=== PATIENT | female | born 1955 | race Hispanic/Latino ===

== ENCOUNTER → 2018-10-12 | Outpatient (CLI) | payer OTHER | END | disposition home or self-care (01) | LOC: OIH 13:08 | PROVIDERS: ATTEND Family Medicine | DX: Z13.6 Encounter for screening for cardiovascular disorders (principal) | CPT/HCPCS: 75571 ==

== ENCOUNTER → 2019-07-31 | Outpatient (CLI) | payer OTHER | END | disposition home or self-care (01) | LOC: RAH 13:16 | PROVIDERS: ATTEND Family Medicine | DX: E04.9 Nontoxic goiter, unspecified (principal) | CPT/HCPCS: 76536 ==

== ENCOUNTER → 2020-08-08 | Outpatient (CLI) | payer OTHER | END | disposition home or self-care (01) | LOC: RAH 10:51 | PROVIDERS: ATTEND Family Medicine | DX: E04.9 Nontoxic goiter, unspecified (principal); E04.2 Nontoxic multinodular goiter; E04.1 Nontoxic single thyroid nodule | CPT/HCPCS: 76536 ==

== ENCOUNTER → 2020-08-11 | Outpatient (CLI) | payer OTHER | END | disposition home or self-care (01) | LOC: RAH 12:27 | PROVIDERS: ATTEND Psychiatry & Neurology Neurology | DX: J32.4 Chronic pansinusitis (principal); G40.209 Localization-related (focal) (partial) symptomatic epilepsy and epileptic syndromes with complex partial seizures, not intractable, without status epilepticus | CPT/HCPCS: 70551 ==

== ENCOUNTER → 2021-05-21 | Outpatient (CLI) | payer OTHER | END | disposition home or self-care (01) | LOC: RAH 01:52 | PROVIDERS: ATTEND Otolaryngology Plastic Surgery within the Head & Neck | DX: J32.8 Other chronic sinusitis (principal) | CPT/HCPCS: 70486 ==

== ENCOUNTER → 2022-09-13 | Outpatient (CLI) | payer OTHER | END | disposition home or self-care (01) | LOC: RAH 13:09 | PROVIDERS: ATTEND Family Medicine | DX: E04.2 Nontoxic multinodular goiter (principal) | CPT/HCPCS: 76536 ==

== ENCOUNTER 2025-04-12 11:19 | Observation (INO) | payer OTHER ==
[~2025-04-12] VITALS: Ht 162.6 cm; Wt 95.8 kg
[2025-04-12] VITALS (15 sets, daily range): BP systolic 119–160; BP diastolic 55–82; PULSE 47–58; RESP 10–28; TEMP 98–98.7; O2SAT 96–99
--- NOTE | 2025-04-12 11:43 | NUR ---
refer to trauma paperwork for charting.
[2025-04-12] MEDS: LACTATED RINGERS 1000ML 1,000 ML IV ONE (11:48)
[2025-04-12 12:00] LABS: BASOPHILS # (AUTO) 0.02 K/uL (0.00-0.20); BASOPHILS % (AUTO) 0.6 % (0.0-5.0); EOSINOPHILS # (AUTO) 0.03 K/uL (0.00-0.70); EOSINOPHILS % (AUTO) 0.9 % (0.0-8.0); HEMATOCRIT 37.9 % (36-48); IMMATURE GRANULOCYTE ABSOLUTE 0.02 K/uL (0-1); MEAN CORPUSCULAR HEMOGLOBIN 30.9 pg (27.0-33.0); MEAN CORPUSCULAR HGB CONC 33.5 g/dL (32.0-36.0); MEAN CORPUSCULAR VOLUME 92.2 fL (79-99); MONOCYTES # (AUTO) 0.5 K/uL (0.1-1.0); MONOCYTES % (AUTO) 14.4 % (3.0-13.0); NEUTROPHILS # (AUTO) 1.8 K/uL (1.8-7.7); NEUTROPHILS % (AUTO) 53.5 % (40.0-77.0); PLATELET COUNT (AUTO) 188 K/uL (130-400); RED BLOOD CELL COUNT(AUTO) 4.11 MIL/uL (4.00-5.50); RED CELL DISTRIBUTION WIDTH 13.8 % (11.0-15.5); WHITE BLOOD COUNT (AUTO) 3.4 K/uL (4.8-10.8)
[2025-04-12 12:14] LABS: INR 0.97 (0.85-1.15); PROTHROMBIN TIME 10.3 SEC (9.6-11.6)
--- NOTE | 2025-04-12 12:27 | HMCIMG ---
CT HEAD/BRAIN W/O CONTRAST HISTORY: Trauma COMPARISON: None TECHNIQUE: Multiple sequential axial images of the head were obtained from the base of the skull through vertex. Patient was not given contrast through intravenous route. FINDINGS: Right posterior scalp soft tissue swelling seen. The ventricles and extraventricular CSF spaces are nondilated for patient's age. There is no midline shift, mass effect or herniation. No acute intracranial bleed is seen. There are bilateral ethmoid and maxillary sinus disease. Postop changes are seen of sinuses. IMPRESSION: 1. No acute intracranial bleed is seen. CT was performed with one or more following dose reduction techniques: automated exposure control, adjustment of the mA and kv according to patient's size, or use of a iterative reconstruction technique.
[2025-04-12 12:31] LABS: B-TYPE NATRIURETIC PEPTIDE 79 pg/mL (0-100)
--- NOTE | 2025-04-12 12:46 | HMCIMG ---
CT CERVICAL SPINE W/O CONTRAST HISTORY: Trauma COMPARISON: None TECHNIQUE: Multiple sequential axial images of the cervical spine were obtained including post processing sagittal and coronal reconstruction images. Patient was not given contrast through intravenous route. FINDINGS: There are degenerative changes of the cervical spine spondylosis. Disc space narrowing are seen at C3-4, and C4-5 levels. The study is limited due to poor positioning. There is straightening of normal lordotic cervical curvature which may be related to muscle spasm or positioning. There is no loss of vertebral height. Evaluation for disc and cord pathology is limited with CT study. No evidence of fracture or dislocation is seen. IMPRESSION: 1. No fracture is seen. DJD with spondylosis. CT was performed with one or more following dose reduction techniques: automated exposure control, adjustment of the mA and kv according to patient's size, or use of a iterative reconstruction technique.
[2025-04-12 13:10] LABS: CREATININE 0.6 mg/dL (0.5-1.0); MAGNESIUM 1.7 mg/dL (1.80-2.40); POTASSIUM 3.9 mmol/L (3.5-5.1)
--- NOTE | 2025-04-12 14:12 | ERN ---
General Chief Complaint: Mechanical Fall Stated Complaint: S/P FALL DIZZINESS Time Seen by MD: 11:21 History of Present Illness Initial Comments 69-year-old female who presents for a fall. Yesterday she felt dizzy and had a fall without injury. This morning she reports that she had another fall. She was working with some plants she stood up. She felt dizzy. She fell back and hit the back of her head. No injury after the fall. No vomiting. GCS 15. She has a laceration to the back of the head. She denies any other injuries. Allergies: Coded Allergies: No Known Drug Allergies (Unverified Allergy, Unknown, 04/12/25) Home Meds Reported Medications Fluticasone Propionate (Flonase Nasal [place]) 50 Mcg/Actuation [place], 50 MCG NASAL AM, SPRAY 04/12/25 Pantoprazole Sodium (Pantoprazole Sodium) 40 Mg Tablet.dr, 1 TAB PO DAILY for 30 Days, #30 TAB 0 Refills 04/12/25 Folic Acid (Folic Acid) 0.4 Mg Tablet, 1 TAB PO DAILY for 30 Days, #30 TAB 0 Refills 04/12/25 Montelukast Sodium (Singulair 10Mg) 10 Mg Tab, 10 MG PO HS, TAB 04/12/25 Duloxetine HCl (Duloxetine HCl) 60 Mg Capsule.dr, 60 MG PO HS, CAP 04/12/25 Lamotrigine (Lamotrigine) 200 Mg Tablet, 300 MG PO HS for 30 Days, #30 TAB 0 Refills 04/12/25 Lamotrigine (Lamotrigine) 200 Mg Tablet, 1 TAB PO DAILY for 30 Days, #30 TAB 0 Refills 04/12/25 Topiramate (Topiramate) 200 Mg Tablet, 300 MG PO HS, TAB 04/12/25 Topiramate (Topiramate) 200 Mg Tablet, 1 TAB PO AM for 30 Days, #60 TAB 0 Refills 04/12/25 Propranolol HCl (Propranolol HCl) 10 Mg Tablet, 1 TAB PO BID for 30 Days, #60 TAB 0 Refills 04/12/25 Discontinued Reported Medications Pantoprazole Sodium (Pantoprazole Sodium) 20 Mg Tablet.dr, 10 TAB PO DAILY 04/12/25 Past Medical History Past Medical History: No Pertinent History Past Surgical History: None Results Laboratory and Microbiology Lab and Micro Result Laboratory Tests Test 04/12/25 11:53 04/12/25 12:46 White Blood Count 3.4 K/uL (4.8-10.8) L Red Blood Count 4.11 MIL/uL (4.00-5.50) Hemoglobin 12.7 g/dL (12.0-16.0) Hematocrit 37.9 % (36-48) Mean Corpuscular Volume 92.2 fL (79-99) Mean Corpuscular Hemoglobin 30.9 pg (27.0-33.0) Mean Corpuscular Hemoglobin Concent 33.5 g/dL (32.0-36.0) Red Cell Distribution Width 13.8 % (11.0-15.5) Platelet Count 188 K/uL (130-400) Mean Platelet Volume 9.5 fL (7.5-10.5) Immature Granulocyte % (Auto) 0.6 % (0-1) Neutrophils (%) (Auto) 53.5 % (40.0-77.0) Lymphocytes (%) (Auto) 30.0 % (21.0-51.0) Monocytes (%) (Auto) 14.4 % (3.0-13.0) H Eosinophils (%) (Auto) 0.9 % (0.0-8.0) Basophils (%) (Auto) 0.6 % (0.0-5.0) Neutrophils # (Auto) 1.8 K/uL (1.8-7.7) Lymphocytes # (Auto) 1.0 K/uL (1.0-4.8) Monocytes # (Auto) 0.5 K/uL (0.1-1.0) Eosinophils # (Auto) 0.03 K/uL (0.00-0.70) Basophils # (Auto) 0.02 K/uL (0.00-0.20) Absolute Immature Granulocyte (auto 0.02 K/uL (0-1) Nucleated Red Blood Cells 0.0 % (0.0-0.19) Prothrombin Time 10.3 SEC (9.6-11.6) Prothromb Time International Ratio 0.97 (0.85-1.15) Activated Partial Thromboplast Time 36.0 SEC (26.3-35.5) H B-Type Natriuretic Peptide 79 pg/mL (0-100) Sodium Level 141 mmol/L (136-145) Potassium Level 3.9 mmol/L (3.5-5.1) Chloride Level 109 mmol/L (101-111) Carbon Dioxide Level 27 mmol/L (21-32) Blood Urea Nitrogen 12 mg/dL (7-18) Creatinine 0.6 mg/dL (0.5-1.0) Glomerular Filtration Rate Calc 97 mL/min (>90) Random Glucose 95 mg/dL (70-105) Total Calcium 8.7 mg/dL (8.5-10.1) Magnesium Level 1.70 mg/dL (1.80-2.40) L Total Creatine Kinase 71 U/L (21-232) Troponin I High Sensitivity 8.2 ng/L (4-50) MDM CC: Syncope and fall Historian: Patient Comorbidities: Seizure disorder Limitations by social determinants of health: None Differential diagnosis: Syncope and fall, cardiac syncope, vertigo, brain injury, other. Vital signs: Pulse 45, otherwise vital signs stable remained stable in the ER. EKG: Sinus rhythm, rate of 46, normal axis, good R-wave progression, intervals are stable no STEMI. Independently interpreted by me. Labs (independently ordered and interpreted by me): No leukocytosis no anemia. Coags are stable. Electrolytes stable. CK magnesium troponin BNP are normal. CT head (independently interpreted by me): No acute bleeding or abnormalities CT cervical spine (independently interpreted by me): No acute fractures On clinical exam she has a laceration to the back of the head, it was repaired with three lele here in the ER. Patient received IV fluids in the ER Patient was monitored on the telemetry, her heart rate ranged from the low 40s to the high 40s. It appears to be sinus. I had a conversation with her, since she has had a syncopal episode 2 times over the last two days I recommended admission for observation. She has seen a neurologist for seizure disorder in the past, she has been diagnosed with vertigo and she thinks this may be the cause, but her neurologist also recommend that she follows up with a diesel engine pipe fitter due to the low heart rate. At this point in time I think it is safest to admit for telemetry monitoring unlikely the cardiac workup. Patient is agreeable to the plan. ED Course Orders Procedure Category Date Status Time Ct Head/Brain W/O CT 04/12/25 Resulted Contrast 11:21 Ct Cervical Spine W/O CT 04/12/25 Resulted Contrast 11:21 Cbc With Differential LAB 04/12/25 Complete 11:21 B-Type Natriuretic LAB 04/12/25 Complete Peptide 11:21 Prothrombin Time With LAB 04/12/25 Complete INR 11:21 Partial LAB 04/12/25 Complete Thromboplastin Time 11:21 Urinalysis Profile LAB 04/12/25 Logged 11:21 Lactated Ringers PHA 04/12/25 Complete 1000ml (Lactated 11:30 12 Lead Ekg Tracing- EKG 04/12/25 Complete Technical 11:21 Basic Metabolic Panel LAB 04/12/25 Complete 12:07 Cardiac Panel LAB 04/12/25 Complete 12:07 Magnesium LAB 04/12/25 Complete 12:07 Current Medications Medications (Trade) Dose Ordered Sig/Rowan Route PRN Reason Start Time Stop Time Status Last Admin Dose Admin Lactated Ringer's 1,000 ml @ 0 mls/hr ONCE ONCE IV 04/12/25 11:30 04/12/25 11:34 DC 04/12/25 11:48 Vital Signs Date Time Temp Pulse Resp B/P (MAP) Pulse Ox O2 Delivery O2 Flow Rate FiO2 04/12/25 11:27 97.2 45 22 104/63 96 Room Air 0 DX & DISP Disposition: Inpatient Departure Impression: Primary Impression: Syncope and collapse Additional Impressions: Scalp hematoma, Bradycardia Condition: Stable Referrals: ANDERSON RIOS MD (PCP) MARIEL SCHULTZ DO Apr 12, 2025 14:12
--- NOTE | 2025-04-12 14:23 | EKG ---
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
[2025-04-12] MEDS ORDERED: acetaMINOPHEN 650 MG SUPPOSITORY RC PRN (15:00)
--- NOTE | 2025-04-12 15:12 | NUR ---
pt states has frequent vertigo episodes states she has dizzy spells
[2025-04-12] MEDS ORDERED: PANT20TA18 PO (15:28)
[2025-04-12] MEDS ORDERED: PROP10TA10 PO (15:28)
[2025-04-12] MEDS ORDERED: PoTASSium chloRIDE 20MEQ ER 20 MEQ ERTAB PO PRN (15:30)
[2025-04-12] MEDS ORDERED: DOPamine HCL 400 MG/D5%-WATER 250 ML IV PRN (15:30)
[2025-04-12] MEDS ORDERED: LORazepam 2 MG/ML 1 ML VIAL IVP PRN (15:30)
[2025-04-12] MEDS ORDERED: TOPI200T68 PO ×2 (15:30→15:31)
[2025-04-12] MEDS ORDERED: diazePAM 5 MG/ML 2 ML SYG IVP PRN (15:30)
[2025-04-12] MEDS ORDERED: PoTASSium chl 10% ELIXIR 20MEQ 20 MEQ/15 ML UDCUP PO PRN (15:30)
[2025-04-12] MEDS ORDERED: PoTASSium chloRIDE 20MEQ/100ML 100 ML IV PRN ×2 (15:30)
[2025-04-12] MEDS ORDERED: LAMO200T10 PO ×2 (15:35)
[2025-04-12] MEDS ORDERED: DULO60CA64 PO (15:37)
[2025-04-12] MEDS ORDERED: MONT-46 PO (15:38)
[2025-04-12] MEDS ORDERED: FOLI0.4T6 PO (15:39)
[2025-04-12] MEDS ORDERED: PANT40TA54 PO (15:40)
[2025-04-12] MEDS ORDERED: FLUT16H NASAL (15:41)
[2025-04-12 15:58] LABS: ABG BASE EXCESS -4.1 mmol/L (-2.0-3.0); ABG HCO3 20.8 mmol/L (21.0-28.0); ABG OXYGEN SATURATION 94.3 % (94.0-98.0); ABG PCO2 38 mmHg (32-45); ABG PH 7.362 (7.350-7.450); CARBON MONOXIDE 0.2 % (0.5-1.5); HHb 5.7; VENT MODE, BG RA (ROOM AIR)
--- NOTE | 2025-04-12 16:27 | HMCIMG ---
US CAROTID DUPLEX HISTORY: Carotid stenosis COMPARISON: None TECHNIQUE: Duplex carotid arterial Doppler ultrasound study was performed. FINDINGS: The common, internal and external carotid arteries are visualized. The peak systolic velocities of right common carotid artery is 92 centimeters per second, right internal carotid artery is 88 centimeters per second, right external carotid artery is 78 centimeters per second, and right vertebral artery is 78 centimeters per second. Right internal carotid artery to right common carotid artery ratio is 1.0. Right vertebral artery is seen with antegrade flow. The peak systolic velocities of left common carotid artery is 97 centimeters per second, left internal carotid artery is 127 centimeters per second, left external carotid artery is 106 centimeters per second, and left vertebral artery is 48 centimeters per second. Left internal carotid artery to left common carotid artery ratio is 1.3. Left vertebral artery is seen with antegrade flow. There are bilateral echogenic plaques. IMPRESSION: 1. No hemodynamically significant lesion is seen of either extracranial carotid artery system.
[2025-04-12] MEDS ORDERED: teTANUS/diphthERIA TOXOID [ADULT] 0.5 ML VIAL IM ONE (16:30)
--- NOTE | 2025-04-12 16:49 | HMCIMG ---
CHEST 1VW HISTORY: Cardiomegaly COMPARISON: None FINDINGS: A frontal projection of the chest was obtained. No acute pulmonary infiltrates is seen. The heart is borderline enlarged. Degenerative changes are seen. No evidence of aortic calcification is seen. IMPRESSION: 1. No acute pulmonary infiltrate is seen.
--- NOTE | 2025-04-12 17:01 | NUR ---
transfer to room 210 via bed report given to Zachery HARKINS
[2025-04-12] MEDS: FAMOTIDINE 20MG VIAL IV ONE (17:56)
[2025-04-12] MEDS ORDERED: ALBUTEROL 0.083% 2.5 MG/3 ML INH IH SCH (18:00)
[2025-04-12] MEDS: ALBUTEROL 0.083% 2.5 MG/3 ML INH IH SCH (18:00)
--- NOTE | 2025-04-12 20:41 | HP ---
[facility] HISTORY & PHYSICAL Date Patient Seen: Apr 12, 2025 Time of Visit: 20:14 Supervising Physician: Nelson Crowell MD Primary Care Physician:Brittany Gayle MD Outpatient Specialists: [ ] Inpatient Consults: [ ] Attending Physician: JACKIE PROBLEM LIST: Suspected symptomatic bradycardia, POA Acute hypoxemic respiratory failure, POA Syncope, POA Carotid stenosis ruled out per US Fall with head injury + LOC, POA Scalp laceration s/p 3 lele, POA Leukopenia, POA Hypomagnesemia, POA Cough, POA DJD with spondylosis of cervical spine Comorbidities: Obesity Seizure disorder Involuntary tremors on propranolol at home Secondhand smoker for over 17 yrs Vertigo HPI: This is a 69-year-old female who presented to the ED for evaluation of fall. Patient reports she was walking towards her car and next thing she know she had fallen to the ground. She obtain a proximally 3 in laceration to the her scalp posteriorly. and TDap ordered. Three lele placed in the ED per ED provider. Patient reports she has been having vertical off and on for few years. She reports she thinks it could be one of her current medication that is causing the dizziness. She also reports she sees a neurologist for her seizure disorder and involuntary tremors; she reports taking propranolol for tremors On arrival to the ED patient was hemodynamically stable heart rate in the 40s sinus bradycardia. Patient has been afebrile since admission. Laboratory done in the ED pertinent for white count of 3.4, magnesium 1.70. Otherwise unremarkable. CT of the head was done any ruled out intracranial bleed, cervical spine only finding of DJD with spondylosis. Chest x-ray unremarkable. Given syncope workup ultrasound of the carotids were done and ruled out carotid stenosis. We will admit pt overnight to the ICU with dopamine drip PRN for heart rate less than 40 and we will have Cardiology evaluate patient is for possible symptomatic bradycardia. For now we will have a 2D echo since she is not sure of her cardiac history and has not followed up with a exerciser horse. Patient informed that clinical findings and plan of care she agrees and wishes to proceed with the admission. PAST MEDICAL HX: see above PAST SURGICAL HX: noncontributory SOCIAL HISTORY: No tobacco, ETOH, or illicit drug use Coded Allergies: No Known Drug Allergies (Unverified Allergy, Unknown, 04/12/25) REVIEW OF SYSTEMS: Const: [no fever, fatigue, or weight changes] Eyes:[ no recent vision problems] ENT: [No congestion, ear pain, or sore throat] C/V: [no chest pain, palpitations or edema] Resp: + for cough and congestion GI: [No abdominal pain, nausea, vomiting, constipation, or diarrhea] : [No incontinence of or dyuria] M/S: [No joint or pain swelling] Skin: [No rash] Neuro:+ scalp laceration, +LOC, dizziness + seizure disorder Psych: [no depression or anxiety] Heme: [no abnormal bruising or bleeding] Lymph: [no swollen glands] PHYSICAL EXAM: GENERAL: alert, weak, awake oriented x 3 HEENT: EOMI, Sclera non icteric, moist mucosa NECK: Supple, no JVD, trachea midline LUNGS: Clear breath sounds bilaterally. No wheezes HEART: Regular rate and rhythm. Normal S1 and S2, without murmurs ABD: Obese Abdomen soft, nontender. Bowel sounds present EXT: No clubbing cyanosis or edema NEURO: Alert and oriented to person, follows commands Vital Signs (last 8hr) Date Time Temp Pulse Resp B/P (MAP) Pulse Ox O2 Delivery O2 Flow Rate FiO2 04/12/25 18:13 50 10 158/56 98 Room Air 04/12/25 18:00 53 25 139/75 99 Room Air 04/12/25 17:40 99 Room Air* 0 04/12/25 17:14 98.2 49 15 136/55 98 Room Air 04/12/25 16:24 97 Room Air* 0 04/12/25 16:00 47 18 N/A Room Air 04/12/25 15:03 98.1 50 15 119/62 99 Room Air 0.0 LABS: Hematology Labs: Test 04/12/25 11:53 Range/Units White Blood Count 3.4 L 4.8-10.8 K/uL Red Blood Count 4.11 4.00-5.50 MIL/uL Hemoglobin 12.7 12.0-16.0 g/dL Hematocrit 37.9 36-48 % Mean Corpuscular Volume 92.2 79-99 fL Mean Corpuscular Hemoglobin 30.9 27.0-33.0 pg Mean Corpuscular Hemoglobin Concent 33.5 32.0-36.0 g/dL Red Cell Distribution Width 13.8 11.0-15.5 % Platelet Count 188 130-400 K/uL Mean Platelet Volume 9.5 7.5-10.5 fL Immature Granulocyte % (Auto) 0.6 0-1 % Neutrophils (%) (Auto) 53.5 40.0-77.0 % Lymphocytes (%) (Auto) 30.0 21.0-51.0 % Monocytes (%) (Auto) 14.4 H 3.0-13.0 % Eosinophils (%) (Auto) 0.9 0.0-8.0 % Basophils (%) (Auto) 0.6 0.0-5.0 % Neutrophils # (Auto) 1.8 1.8-7.7 K/uL Lymphocytes # (Auto) 1.0 1.0-4.8 K/uL Monocytes # (Auto) 0.5 0.1-1.0 K/uL Eosinophils # (Auto) 0.03 0.00-0.70 K/uL Basophils # (Auto) 0.02 0.00-0.20 K/uL Absolute Immature Granulocyte (auto 0.02 0-1 K/uL Nucleated Red Blood Cells 0.0 0.0-0.19 % Chemistry Labs: Test 04/12/25 15:19 04/12/25 12:46 04/12/25 11:53 Range/Units Total Creatine Kinase 73 21-232 U/L Troponin I High Sensitivity 11.6 4-50 ng/L Sodium Level 141 136-145 mmol/L Potassium Level 3.9 3.5-5.1 mmol/L Chloride Level 109 101-111 mmol/L Carbon Dioxide Level 27 21-32 mmol/L Blood Urea Nitrogen 12 7-18 mg/dL Creatinine 0.6 0.5-1.0 mg/dL Glomerular Filtration Rate Calc 97 >90 mL/min Random Glucose 95 70-105 mg/dL Total Calcium 8.7 8.5-10.1 mg/dL Magnesium Level 1.70 L 1.80-2.40 mg/dL B-Type Natriuretic Peptide 79 0-100 pg/mL Coagulation Labs: Test 04/12/25 11:53 Range/Units Prothrombin Time 10.3 9.6-11.6 SEC Prothromb Time International Ratio 0.97 0.85-1.15 Activated Partial Thromboplast Time 36.0 H 26.3-35.5 SEC DIAGNOSTICS / RADIOLOGY RESULTS: [ [facility] [address] [place], [place] [address] IMAGING REPORT Signed PATIENT: MONTY GARCES MR#: [id number] : 1955 SEX: F AGE: 69 LOCATION: [facility] ORDER 1509 STATUS: ADM IN REPORT#: [id number] SERVICE 1508 REASON: RULE OUT PNEUMO OR CARDIOMEGALY ORDERING PHYSICIAN: NADJA MAYER PROCEDURE: CXR1VW - CHEST 1VW CHEST 1VW HISTORY: Cardiomegaly COMPARISON: None FINDINGS: A frontal projection of the chest was obtained. No acute pulmonary infiltrates is seen. The heart is borderline enlarged. Degenerative changes are seen. No evidence of aortic calcification is seen. IMPRESSION: 1. No acute pulmonary infiltrate is seen. DICTATED BY: YUSRA CRISOSTOMO MD DATE: 04/12/251645 ELECTRONICALLY SIGNED BY: YUSRA CRISOSTOMO MD DATE: 04/12/251648 ] [facility] [address] [place] [id number] IMAGING REPORT Signed PATIENT: MONTY GARCES MR#: [id number] : 1955 SEX: F AGE: 69 [facility]US: [facility]#: [id number] SERVICE 1508 REASON: RULE OUT CAROTID STENOSIS ORDERING PHYSICIAN: NADJA MAYER PROCEDURE: CAROTID - US CAROTID DUPLEX US CAROTID DUPLEX HISTORY: Carotid stenosis COMPARISON: None TECHNIQUE: Duplex carotid arterial Doppler ultrasound study was performed. FINDINGS: The common, internal and external carotid arteries are visualized. The peak systolic velocities of right common carotid artery is 92 centimeters per second, right internal carotid artery is 88 centimeters per second, right external carotid artery is 78 centimeters per second, and right vertebral artery is 78 centimeters per second. Right internal carotid artery to right common carotid artery ratio is 1.0. Right vertebral artery is seen with antegrade flow. The peak systolic velocities of left common carotid artery is 97 centimeters per second, left internal carotid artery is 127 centimeters per second, left external carotid artery is 106 centimeters per second, and left vertebral artery is 48 centimeters per second. Left internal carotid artery to left common carotid artery ratio is 1.3. Left vertebral artery is seen with antegrade flow. There are bilateral echogenic plaques. IMPRESSION: 1. No hemodynamically significant lesion is seen of either extracranial carotid artery system. DICTATED BY: YUSRA CRISOSTOMO MD DATE: 04/12/251623 ELECTRONICALLY SIGNED BY: YUSRA CRISOSTOMO MD DATE: 04/12/251626 [place] [address] [address] IMAGING REPORT Signed PATIENT: MONTY GARCES MR#: [id number] : 1955 SEX: F AGE: 69 LOCATION: [facility] ORDER 112 STATUS: REG REPORT#: [id number] SERVICE 1121 REASON: head injury ORDERING PHYSICIAN: MARIEL SCHULTZ DO PROCEDURE: HEAD WO - CT HEAD/BRAIN W/O CONTRAST CT HEAD/BRAIN W/O CONTRAST HISTORY: Trauma COMPARISON: None TECHNIQUE: Multiple sequential axial images of the head were obtained from the base of the skull through vertex. Patient was not given contrast through intravenous route. FINDINGS: Right posterior scalp soft tissue swelling seen. The ventricles and extraventricular CSF spaces are nondilated for patient's age. There is no midline shift, mass effect or herniation. No acute intracranial bleed is seen. There are bilateral ethmoid and maxillary sinus disease. Postop changes are seen of sinuses. IMPRESSION: 1. No acute intracranial bleed is seen. CT was performed with one or more following dose reduction techniques: automated exposure control, adjustment of the mA and kv according to patient's size, or use of a iterative reconstruction technique. DICTATED BY: YUSRA CRISOSTOMO MD DATE: 04/12/251223 ELECTRONICALLY SIGNED BY: YUSRA CRISOSTOMO MD DATE: 04/12/251226 [place] [id number] [address] IMAGING REPORT Signed PATIENT: MONTY GARCES MR#: [id number] : 1955 SEX: F AGE: 69 LOCATION: [facility] ORDER 24 STATUS: REG [facility] REPORT#: [id number] SERVICE 20 REASON: head injury ORDERING PHYSICIAN: MARIEL SCHULTZ DO PROCEDURE: C SPIN WO - CT CERVICAL SPINE W/O CONTRAST CT CERVICAL SPINE W/O CONTRAST HISTORY: Trauma COMPARISON: None TECHNIQUE: Multiple sequential axial images of the cervical spine were obtained including post processing sagittal and coronal reconstruction images. Patient was not given contrast through intravenous route. FINDINGS: There are degenerative changes of the cervical spine spondylosis. Disc space narrowing are seen at C3-4, and C4-5 levels. The study is limited due to poor positioning. There is straightening of normal lordotic cervical curvature which may be related to muscle spasm or positioning. There is no loss of vertebral height. Evaluation for disc and cord pathology is limited with CT study. No evidence of fracture or dislocation is seen. IMPRESSION: 1. No fracture is seen. DJD with spondylosis. CT was performed with one or more following dose reduction techniques: automated exposure control, adjustment of the mA and kv according to patient's size, or use of a iterative reconstruction technique. DICTATED BY: YUSRA CRISOSTOMO MD DATE: 04/12/25 124 ELECTRONICALLY SIGNED BY: YUSRA CRISOSTOMO MD DATE: 04/12/251245 PLAN EKG done in ED shows sinus bradycardia HR in the 40's CBC, CMP, magnesium, phosphate, troponin Monitor electrolytes and replace accordingly. TSH and cortisol Lamotrigine And topiramate levels TTE CT head no intracranial bleed Dopamine drip PRN heart rate less than 40 Hold beta blockers, and calcium channel blockers- Hold her propranolol from home Cardiac continuous monitoring ABG Cardiology consult NEURO: Minimize central acting medications as possible. Fall Precautions. Well lighted room through the day and minimize interruptions through the night to prevent acute delirium. PULMONARY: Supplemental 02 as needed Titrate Fio2 to keep Spo2 > or = 90% DuoNebs and CPT as needed IS hourly while awake for pulmonary hygiene Out of bed to chair as tolerated CARDIOVASCULAR: Follow hemodynamics. Titrate vasopressor to keep MAP >65 or systolic blood pressure >95mmHg DRIPS: Dopamine PRN HR < 40 symptomatic with hypotension LINES: PIV GI & NUTRITION: Continue nutritional support Aspirations precautions Prokinetic agents and laxatives as needed HH KIDNEYS & ELECTROLYTES: Strict monitoring of intake and output Daily weights Avoid nephrotoxic agents Monitor electrolytes and replace as needed Goal urine output of 30mL/hr or 0.5mL/kg/hr ENDOCRINE: Maintain blood glucose between 100-180 at all times. Insulin sliding scale for blood glucose management INFECTIOUS DISEASE: Trend temperature. Mello-culture if febrile. Micro: [ ] none Antibiotics: HEMATOLOGY & COAGULATION: Monitor H&H. Keep Hgb > 7 Transfuse 1 unit of PRBC for Hgb < 7 Transfuse 1 pack of platelets of platelets < 20, 000 Watch for any signs and symptoms of bleeding SKIN: Pressure ulcer prevention per facility protocol Rehab: PT/OT Prophylaxis: GI: [protonix ] DVT: [SCD's for now ] Code Status: Full Resuscitation Disposition: [ICU ] Other: Total patient care time exceeds 35 minutes excluding all procedures. Case was discussed and seen with my supervising physician. The above plan was formulated and agreed upon. ATTESTATION BY PHYSICIAN I attest that I reviewed and discussed the case with the Physician Mascara Molder as well as agree with the Physician Mascara Molder's findings, plans of care, and documentation above. Nelson Wiley MD, NELLY J ARNP Apr 12, 2025 20:40
[2025-04-12] MEDS: topIRAMate 100 MG TAB PO SCH (21:20)
[2025-04-12] MEDS: duloXETine HCL 30 MG CAP PO SCH (21:20)
[2025-04-12] MEDS: acetaMINOPHEN 325 MG TAB PO PRN (21:21)
[2025-04-12] MEDS: laMOTRigine 100 MG TABLET PO SCH (21:22)
[2025-04-12] MEDS: monteLUKAST sodIUM 10 MG TAB PO SCH (21:22)
--- NOTE | 2025-04-12 21:53 | CONS ---
CONSULT NOTE: CARDIOLOGY Reason for consult: bradycardia HPI/story at presentation: This is a pleasant 69-year-old female with past medical history as below presents with complaints of a syncopal spell, in the setting of bradycardia, heart rates in the 40s at presentation, patient was on propranolol at home which may be a contributing factor. Also on multiple antiseizure medications Subjective: 04/12/2025 no active cardiac complaints, heart rates are better Past medical history: See below Allergies, Meds See chart Review of systems Review of Systems Constitutional: Negative for chills and fever. HENT: Negative for ear discharge and ear pain. Eyes: Negative for photophobia and discharge. Respiratory: Negative for cough, sputum production and stridor. Cardiovascular: Negative for chest pain and palpitations. Gastrointestinal: Negative for diarrhea and vomiting. Genitourinary: Negative for frequency. Musculoskeletal: Negative for myalgias. Skin: Negative for rash. Neurological: Negative for focal weakness and seizures. Endo/Heme/Allergies: Negative for polydipsia. Psychiatric/Behavioral: Negative for hallucinations. Vitals see chart PHYSICAL EXAMINATION GENERAL: The patient is alert and oriented*3 HEENT: Nonicteric sclerae, non traumatic HEART: Regular rate and rhythm with no murmurs LUNGS: Clear to auscultation bilaterally ABDOMEN: No acute issues, non tender GENITAL, RECTAL: deferred SKIN: No rash NEUROLOGIC: NFND EXTREMITIES: No edema ASSESSMENT SINUS BRADYCARDIA At presentation On dopamine, 03/2025 Negative carotids, 03/2025 TREMORS Propranolol at Home SYNCOPE, FALL At presentation With associated fall with head injury, scalp laceration LEUKOPENIA CORE MEASURES Not applicable OTHER MEDICAL PROBLEMS Degenerative disc disease PLAN 04/12/25 we will continue to hold propranolol, if patient has significant issues with tremors, may consider primidone instead. Some of the antiseizure medications that she is on can also potentially cause bradycardia and may need to be tapered if needed. For now, continue. If bradycardia persist in spite of medication changes, may need to consider pacemaker placement. Echocardiogram has been ordered and is pending. Seen and examined 04/12/2025 at around 9:30 PM. ATTESTATION I was involved substantially in the care of this patient Number and complexity of problems addressed: 1 acute illness with systemic featu res Amount and or complexity of data Review of prior external note(s) from each unique source: 2+ Ordering of each unique test : 0 Review of the result(s) of each unique test: 2+ Assessment requiring an independent historian(s): No Independent interpretation of test performed by another MD/QHCP/appropriate source (not separately reported) : No Discussion of management or test interpretation with external MD/QHCP/appropriate source (not separately reported) : No Risk status (cardiac, billing related): Moderate VISH ESTES MD Apr 12, 2025 21:53
[2025-04-12] MEDS: MAGNESIUM 2GM PREMIX 50ML 50 ML IV PRN (23:46)
[2025-04-13] VITALS (25 sets, daily range): BP systolic 113–159; BP diastolic 55–92; PULSE 47–70; RESP 14–26; TEMP 97.7–98.8; O2SAT 94–100
[2025-04-13 04:10] LABS: BASOPHILS # (AUTO) 0.01 K/uL (0.00-0.20); BASOPHILS % (AUTO) 0.4 % (0.0-5.0); EOSINOPHILS # (AUTO) 0.05 K/uL (0.00-0.70); EOSINOPHILS % (AUTO) 1.9 % (0.0-8.0); HEMATOCRIT 37.5 % (36-48); IMMATURE GRANULOCYTE ABSOLUTE 0.01 K/uL (0-1); LYMPHOCYTES # (AUTO) 1.2 K/uL (1.0-4.8); LYMPHOCYTES % (AUTO) 45.7 % (21.0-51.0); MEAN CORPUSCULAR HEMOGLOBIN 31.4 pg (27.0-33.0); MEAN CORPUSCULAR HGB CONC 32.8 g/dL (32.0-36.0); MEAN CORPUSCULAR VOLUME 95.7 fL (79-99); MONOCYTES # (AUTO) 0.4 K/uL (0.1-1.0); NEUTROPHILS % (AUTO) 37.6 % (40.0-77.0); PLATELET COUNT (AUTO) 173 K/uL (130-400); RED BLOOD CELL COUNT(AUTO) 3.92 MIL/uL (4.00-5.50); RED CELL DISTRIBUTION WIDTH 13.6 % (11.0-15.5); WHITE BLOOD COUNT (AUTO) 2.6 K/uL (4.8-10.8)
[2025-04-13 04:20] LABS: INR 0.96 (0.85-1.15); PROTHROMBIN TIME 10.2 SEC (9.6-11.6)
[2025-04-13 04:32] LABS: CREATININE 0.5 mg/dL (0.5-1.0); MAGNESIUM 2.4 mg/dL (1.80-2.40); THYROID STIMULATING HORMONE 2.68 uIU/mL (0.36-3.74)
[2025-04-13 04:38] LABS: B-TYPE NATRIURETIC PEPTIDE 72 pg/mL (0-100)
[2025-04-13 05:10] LABS: BAND NEUTROPHILS % (MANUAL) 2 % (0-2); LYMPHOCYTES % (MANUAL) 43 % (22-44); MAN.DIFF COMMENT-IMPRESSION MANUAL DIFFERENTIAL; MONOCYTES % (MANUAL) 14 % (2-9); SEGMENTED NEUTROPHILS % 41 % (40-70); TOTAL CELLS COUNTED 100
[2025-04-13] MEDS: laMOTRigine 100 MG TABLET PO SCH ×2 (08:08→08:09)
[2025-04-13] MEDS: topIRAMate 100 MG TAB PO SCH (08:09)
[2025-04-13] MEDS: PANTOPrazole 40 MG TAB DR PO SCH (08:09)
[2025-04-13] MEDS: fluTICasone proPIONate 50MCG/SPRAY 16 GM BOTTLE NS SCH (08:09)
[2025-04-13] MEDS: FOLic ACID 1 MG TABLET PO SCH (08:09)
[2025-04-13] MEDS ORDERED: topIRAMate 100 MG TAB PO SCH (09:00)
--- NOTE | 2025-04-13 09:23 | PN ---
[facility] PROGRESS NOTE Date Patient Seen: Apr 13, 2025 Time of Visit: 09:23 Supervising Physician: INDIRA KEARNEY MD Primary Care Physician:Brittany Gayle MD Outpatient Specialists: [ ] Inpatient Consults: [ ] Attending Physician: JACKIE PROBLEM LIST: Suspected symptomatic bradycardia, POA Acute hypoxemic respiratory failure, POA Syncope, POA Carotid stenosis ruled out per US Fall with head injury + LOC, POA Scalp laceration s/p 3 lele, POA Leukopenia, POA Hypomagnesemia, POA Cough, POA DJD with spondylosis of cervical spine Comorbidities: Obesity Seizure disorder Involuntary tremors on propranolol at home Secondhand smoker for over 17 yrs Vertigo INTERVAL HISTORY: Pt is awake alert and oriented. HR has improved to mid 50's and pt has been hemodynamically stable. o2 sat 98% at Room air. She has been afebrile. Since holding propranolol HR has slowly and steadily increased. She is stable to downgrade to M/S. Urine output has been good as per pt. WBC 2,6, HH stable. Cr 0.5. GFR 101. Cardiac enzymes negative x 3. 2D echo >65%. no pericardial effusion. left ventricular function is normal. Pending topiramate abd lamotrigine level. stable to downgrade to medical floor. If she continues to improve may be discharged home in the next 24 hours. . REVIEW OF SYSTEMS: Const: [no fever, fatigue, or weight changes] Eyes:[ no recent vision problems] ENT: [No congestion, ear pain, or sore throat] C/V: [no chest pain, palpitations or edema] Resp: + for cough and congestion GI: [No abdominal pain, nausea, vomiting, constipation, or diarrhea] : [No incontinence of or dyuria] M/S: [No joint or pain swelling] Skin: [No rash] Neuro:+ scalp laceration, +LOC, no dizziness Psych: [no depression or anxiety] Heme: [no abnormal bruising or bleeding] Lymph: [no swollen glands] PHYSICAL EXAM: GENERAL: alert, weak, awake oriented x 3 HEENT: EOMI, Sclera non icteric, moist mucosa NECK: Supple, no JVD, trachea midline LUNGS: Clear breath sounds bilaterally. No wheezes HEART: Regular rate and rhythm. Normal S1 and S2, without murmurs ABD: Obese Abdomen soft, nontender. Bowel sounds present EXT: No clubbing cyanosis or edema NEURO: Alert and oriented to person, follows commands Vital Signs (last 8hr) Date Time Temp Pulse Resp B/P (MAP) Pulse Ox O2 Delivery O2 Flow Rate FiO2 04/13/25 07:25 51 20 04/13/25 07:21 51 20 N/A Room Air 21 04/13/25 05:00 50 26 148/55 98 Room Air 04/13/25 04:32 47 19 N/A Room Air 04/13/25 04:29 98 Room Air* 0 21 04/13/25 04:00 98.8 50 23 126/62 98 Room Air 04/13/25 03:00 49 20 115/56 94 Room Air 04/13/25 02:00 52 19 130/61 95 Room Air 21 LABS: Hematology Labs: Test 04/13/25 03:59 Range/Units White Blood Count 2.6 L 4.8-10.8 K/uL Red Blood Count 3.92 L 4.00-5.50 MIL/uL Hemoglobin 12.3 12.0-16.0 g/dL Hematocrit 37.5 36-48 % Mean Corpuscular Volume 95.7 79-99 fL Mean Corpuscular Hemoglobin 31.4 27.0-33.0 pg Mean Corpuscular Hemoglobin Concent 32.8 32.0-36.0 g/dL Red Cell Distribution Width 13.6 11.0-15.5 % Platelet Count 173 130-400 K/uL Mean Platelet Volume 9.1 7.5-10.5 fL Immature Granulocyte % (Auto) 0.4 0-1 % Neutrophils (%) (Auto) 37.6 L 40.0-77.0 % Lymphocytes (%) (Auto) 45.7 21.0-51.0 % Monocytes (%) (Auto) 14.0 H 3.0-13.0 % Eosinophils (%) (Auto) 1.9 0.0-8.0 % Basophils (%) (Auto) 0.4 0.0-5.0 % Neutrophils # (Auto) 1.0 L 1.8-7.7 K/uL Lymphocytes # (Auto) 1.2 1.0-4.8 K/uL Monocytes # (Auto) 0.4 0.1-1.0 K/uL Eosinophils # (Auto) 0.05 0.00-0.70 K/uL Basophils # (Auto) 0.01 0.00-0.20 K/uL Absolute Immature Granulocyte (auto 0.01 0-1 K/uL Segmented Neutrophils % 41 40-70 % Band Neutrophils % 2 0-2 % Lymphocytes % (Manual) 43 22-44 % Monocytes % (Manual) 14 H 2-9 % Nucleated Red Blood Cells 0.0 0.0-0.19 % Differential Comment MANUAL DIFFERENTIAL White Cell Morphology Comment Platelet Morphology Comment See comments Red Blood Cell Morphology ANISO 1+ Chemistry Labs: Test 04/13/25 03:59 Range/Units Sodium Level 142 136-145 mmol/L Potassium Level 4.0 3.5-5.1 mmol/L Chloride Level 111 101-111 mmol/L Carbon Dioxide Level 24 21-32 mmol/L Blood Urea Nitrogen 10 7-18 mg/dL Creatinine 0.5 0.5-1.0 mg/dL Glomerular Filtration Rate Calc 101 >90 mL/min Random Glucose 98 70-105 mg/dL Total Calcium 8.3 L 8.5-10.1 mg/dL Phosphorus Level 3.0 2.5-4.9 mg/dL Magnesium Level 2.40 1.80-2.40 mg/dL Total Creatine Kinase 57 21-232 U/L Troponin I High Sensitivity 11.9 4-50 ng/L B-Type Natriuretic Peptide 72 0-100 pg/mL Thyroid Stimulating Hormone (TSH) 2.68 0.36-3.74 uIU/mL Coagulation Labs: Test 04/13/25 03:59 04/12/25 11:53 Range/Units Prothrombin Time 10.2 9.6-11.6 SEC Prothromb Time International Ratio 0.96 0.85-1.15 Activated Partial Thromboplast Time 36.0 H 26.3-35.5 SEC DIAGNOSTICS / RADIOLOGY RESULTS: [[place] [id number] [address] IMAGING REPORT Signed PATIENT: MONTY GARCES MR#: [id number] : 1955 SEX: F AGE: 69 LOCATION: 3AH ORDER 53 STATUS: ADM IN REPORT#: [id number] SERVICE 1042 REASON: BRADYCARDIA ASSESS HEART FAILURE dr goldman to read ORDERING PHYSICIAN: VISH ESTES MD PROCEDURE: ECHO CMP - ECHO 2-D COMPLETE APPROVED REPORT EXAM: Two-dimensional and M-mode echocardiogram with Doppler and color Doppler. INDICATION ICD: Bradycardia, assess heart failure 2D Dimensions RVDd 3.5 cm LVEF(%) 78.0 (>50%) LVED Vol(simp.) 97.0 mL IVSd 1.2 (0.7-1.1cm) FS(%) 47 % LVES Vol(simp.) 30.0 mL LVDd 4.9 (3.8-5.6cm) LA (2D) 3.6 (1.6-4.0cm) LVEF(%, simp.) 69 % PWd 1.2 (0.7-1.1cm) Ao Root(2D) 2.9 (2.0-3.7cm) LA ESV INDEX (BP) 34.11 mL/m2 IVSs 1.6 cm LVOT diam 2.1 (1.8-2.4cm) LVDs 2.6 (2.5-4.0cm) IVC diam 1.6 cm PWs 1.7 cm Deformation Strain Apical 4 -21.6 % Apical 2 -21.8 % Apical 3 -21.9 % Global Strain -21.8 % M-Mode Dimensions EPSS 0.3 cm LA (MM) 4.9 (1.6-4.0cm) Ao Root(MM) 2.9 (2.0-3.7cm) Aortic Valve AoV Vmax 1.9 m/s Ao Peak GR 14.3 mmHg LVOT Vmax 1.3 m/s AoV VTI 0.4 m Ao Mean GR 7.0 mmHg LVOT VTI 0.30 m JAN (VMAX) 2.32 cm2 JAN (VTI) 2.5 cm2 Mitral Valve MV E Vmax 70.5 cm/s DECEL Time 270 ms MV A Vmax 78.2 cm/s P 1/2 T 41 ms E/A ratio 0.9 MVA (PHT) 5.4 cm2 TDI E/E' Medial 11.0 E/E' Lateral 12.7 Medial E' Peak V 6.39 cm/s Lateral E' Peak V 5.54 cm/s Pulmonary Valve PV Vmax 1.2 m/s PV VTI 0.25 m PV Mean GR 3.5 mmHg PV Peak GR 6.0 mmHg PI End Pura. Major 122.5 cm/s Tricuspid Valve RAP (EST) 3 mmHg RVSP 3.0 mmHg Left Ventricle The left ventricle is normal size. Normal wall motion There is normal left ventricular wall thickness. LVEF is >65%. The left ventricular diastolic function is normal. Right Ventricle The right ventricle is normal size. The right ventricular systolic function is normal. Atria The left atrium is borderline dilated. The right atrium size is normal. Aortic Valve The aortic valve is normal in structure. No aortic regurgitation is present. There is no aortic valvular stenosis. Mitral Valve The mitral valve is normal in structure. There is no mitral valve regurgitation noted. There is no mitral valve stenosis. Tricuspid Valve The tricuspid valve is normal in structure. There is trace of tricuspid valve regurgitation noted. Pulmonic Valve The pulmonary valve is normal in structure. There is trace of pulmonic valvular regurgitation. Great Vessels The aortic root is normal in size. The IVC is normal in size and collapses >50% with inspiration. Pericardium There is no pericardial effusion. Other Information Quality : Adequate Conclusion LVEF is >65%. The left ventricular diastolic function is normal. There is normal left ventricular wall thickness. The left ventricle is normal size. Normal wall motion The left atrium is borderline dilated. There is no pericardial effusion. Normal pulmonary pressures Study quality was adequate DICTATED BY: VISH ESTES MD DATE: 04/13/25 1126 ELECTRONICALLY SIGNED BY: VISH ESTES MD DATE: 04/13/25 1542 ] PLAN Downgrade to [facility]. I all goes well and HR continues to improve archie KAUFFMAN in am . EKG done in ED shows sinus bradycardia HR in the 40's, now improved. CBC, CMP, magnesium, phosphate, troponin Monitor electrolytes and replace accordingly. TSH and cortisol Lamotrigine And topiramate levels TTE CT head no intracranial bleed Dopamine drip PRN heart rate less than 40 Hold beta blockers, and calcium channel blockers- Hold her propranolol from home Cardiac continuous monitoring ABG Cardiology consult NEURO: Minimize central acting medications as possible. Fall Precautions. Well lighted room through the day and minimize interruptions through the night to prevent acute delirium. PULMONARY: Supplemental 02 as needed Titrate Fio2 to keep Spo2 > or = 90% DuoNebs and CPT as needed IS hourly while awake for pulmonary hygiene Out of bed to chair as tolerated CARDIOVASCULAR: Follow hemodynamics. Titrate vasopressor to keep MAP >65 or systolic blood pressure >95mmHg DRIPS: Dopamine PRN HR < 40 symptomatic with hypotension LINES: PIV GI & NUTRITION: Continue nutritional support Aspirations precautions Prokinetic agents and laxatives as needed HH KIDNEYS & ELECTROLYTES: Strict monitoring of intake and output Daily weights Avoid nephrotoxic agents Monitor electrolytes and replace as needed Goal urine output of 30mL/hr or 0.5mL/kg/hr ENDOCRINE: Maintain blood glucose between 100-180 at all times. Insulin sliding scale for blood glucose management INFECTIOUS DISEASE: Trend temperature. Mello-culture if febrile. Micro: [ ] none Antibiotics: HEMATOLOGY & COAGULATION: Monitor H&H. Keep Hgb > 7 Transfuse 1 unit of PRBC for Hgb < 7 Transfuse 1 pack of platelets of platelets < 20, 000 Watch for any signs and symptoms of bleeding SKIN: Pressure ulcer prevention per facility protocol Rehab: PT/OT Prophylaxis: GI: [protonix ] DVT: [SCD's for now ] Code Status: Full Resuscitation Disposition: [ICU ] Other: Total patient care time exceeds 35 minutes excluding all procedures. Case was discussed and seen with my supervising physician. The above plan was formulated and agreed upon. ATTESTATION BY PHYSICIAN I reviewed the documentation, medical decision making, and treatment plan as noted by the mid-level provider above. I agree with the findings and plan of care. Louis Ghosh MD, [facility] Apr 13, 2025 09:23
--- NOTE | 2025-04-13 10:53 | NUR ---
called to give report. Nurse Lin garcia at this time. Will call back in 5 minutes for report
--- NOTE | 2025-04-13 11:28 | NUR ---
patient getting 2D echo at this moment. We'll transfer when done
--- NOTE | 2025-04-13 12:14 | NUR ---
bedside report given to nurse ELIZ Ceballos. All questions answered
--- NOTE | 2025-04-13 12:17 | NUR ---
RECEIVED PT INTO ROOM 332. PT IS ALERT AND ORIENTED. PT IN NO APPARENT DISTRESS. VS WITHIN RANGE. FAMILY AT BEDSIDE.
--- NOTE | 2025-04-13 15:42 | HMCSR ---
APPROVED REPORT EXAM: Two-dimensional and M-mode echocardiogram with Doppler and color Doppler. INDICATION ICD: Bradycardia, assess heart failure 2D Dimensions RVDd3.5 cmLVEF(%)78.0 (>50%)LVED Vol(simp.)97.0 mL IVSd1.2 (0.7-1.1cm)FS(%)47 %LVES Vol(simp.)30.0 mL LVDd4.9 (3.8-5.6cm)LA (2D)3.6 (1.6-4.0cm)LVEF(%, simp.)69 % PWd1.2 (0.7-1.1cm)Ao Root(2D)2.9 (2.0-3.7cm)LA ESV INDEX (BP)34.11 mL/m2 IVSs1.6 cmLVOT diam2.1 (1.8-2.4cm) LVDs2.6 (2.5-4.0cm)IVC diam1.6 cm PWs1.7 cm Deformation Strain Apical 4-21.6 % Apical 2-21.8 % Apical 3-21.9 % Global Strain-21.8 % M-Mode Dimensions EPSS0.3 cm LA (MM)4.9 (1.6-4.0cm) Ao Root(MM)2.9 (2.0-3.7cm) Aortic Valve AoV Vmax1.9 m/Peace Peak GR14.3 mmHgLVOT Vmax1.3 m/s AoV VTI0.4 mAo Mean GR7.0 mmHgLVOT VTI0.30 m JAN (VMAX)2.32 cm2AVA (VTI) 2.5 cm2 Mitral Valve MV E Vmax70.5 cm/sDECEL Vnwz205 ms MV A Vmax78.2 cm/sP 1/2 T41 ms E/A ratio0.9MVA (PHT)5.4 cm2 TDI E/E' Dmelnd47.0E/E' Lmydlye86.7 Medial E' Peak V6.39 cm/sLateral E' Peak V5.54 cm/s Pulmonary Valve PV Vmax1.2 m/sPV VTI0.25 mPV Mean GR3.5 mmHg PV Peak GR6.0 mmHgPI End Pura. Major 122.5 cm/s Tricuspid Valve RAP (EST) 3 mmHgRVSP3.0 mmHg Left Ventricle The left ventricle is normal size. Normal wall motion There is normal left ventricular wall thickness . LVEF is >65%. The left ventricular diastolic function is normal. Right Ventricle The right ventricle is normal size. The right ventricular systolic function is normal. Atria The left atrium is borderline dilated. The right atrium size is normal. Aortic Valve The aortic valve is normal in structure. No aortic regurgitation is present. There is no aortic valvu lar stenosis. Mitral Valve The mitral valve is normal in structure. There is no mitral valve regurgitation noted. There is no mi tral valve stenosis. Tricuspid Valve The tricuspid valve is normal in structure. There is trace of tricuspid valve regurgitation noted. Pulmonic Valve The pulmonary valve is normal in structure. There is trace of pulmonic valvular regurgitation. Great Vessels The aortic root is normal in size. The IVC is normal in size and collapses >50% with inspiration. Pericardium There is no pericardial effusion. Other Information Quality : Adequate Conclusion LVEF is >65%. The left ventricular diastolic function is normal. There is normal left ventricular wall thickness. The left ventricle is normal size. Normal wall motion The left atrium is borderline dilated. There is no pericardial effusion. Normal pulmonary pressures Study quality was adequate
[2025-04-13] MEDS: PRIMIDONE 50 MG TAB PO SCH (21:11)
--- NOTE | 2025-04-13 22:35 | PN ---
CARDIOLOGY Reason for consult: bradycardia HPI/story at presentation: This is a pleasant 69-year-old female with past medical history as below presents with complaints of a syncopal spell, in the setting of bradycardia, heart rates in the 40s at presentation, patient was on propranolol at home which may be a contributing factor. Also on multiple antiseizure medications Subjective: 04/12/2025 no active cardiac complaints, heart rates are better Past medical history: See below Allergies, Meds See chart Review of systems Review of Systems Constitutional: Negative for chills and fever. HENT: Negative for ear discharge and ear pain. Eyes: Negative for photophobia and discharge. Respiratory: Negative for cough, sputum production and stridor. Cardiovascular: Negative for chest pain and palpitations. Gastrointestinal: Negative for diarrhea and vomiting. Genitourinary: Negative for frequency. Musculoskeletal: Negative for myalgias. Skin: Negative for rash. Neurological: Negative for focal weakness and seizures. Endo/Heme/Allergies: Negative for polydipsia. Psychiatric/Behavioral: Negative for hallucinations. Vitals see chart PHYSICAL EXAMINATION GENERAL: The patient is alert and oriented*3 HEENT: Nonicteric sclerae, non traumatic HEART: Regular rate and rhythm with no murmurs LUNGS: Clear to auscultation bilaterally ABDOMEN: No acute issues, non tender GENITAL, RECTAL: deferred SKIN: No rash NEUROLOGIC: NFND EXTREMITIES: No edema ASSESSMENT SINUS BRADYCARDIA At presentation On dopamine, 03/2025 Negative carotids, 03/2025 TREMORS Propranolol at Home SYNCOPE, FALL At presentation With associated fall with head injury, scalp laceration LEUKOPENIA CORE MEASURES Not applicable OTHER MEDICAL PROBLEMS Degenerative disc disease PLAN 04/12/25 we will continue to hold propranolol, if patient has significant issues with tremors, may consider primidone instead. Some of the antiseizure medications that she is on can also potentially cause bradycardia and may need to be tapered if needed. For now, continue. If bradycardia persist in spite of medication changes, may need to consider pacemaker placement. Echocardiogram has been ordered and is pending. Seen and examined 04/12/2025 at around 9:30 PM. 04/13/25 Overall doing well, heart rates are current in the 70s, can likely be discharged home from a cardiac standpoint, will adjust blood pressure medications. Seen and examined 04/13/2025 at around 2100. ATTESTATION I was involved substantially in the care of this patient Number and complexity of problems addressed: 1 acute illness with systemic features Amount and or complexity of data Review of prior external note(s) from each unique source: 2+ Ordering of each unique test : 0 Review of the result(s) of each unique test: 2+ Assessment requiring an independent historian(s): No Independent interpretation of test performed by another MD/QHCP/appropriate source (not separately reported) : No Discussion of management or test interpretation with external MD/QHCP/appropriate source (not separately reported) : No Risk status (cardiac, billing related): Moderate Vitals/Labs Vital Signs Date Time Temp Pulse Resp B/P (MAP) Pulse Ox O2 Delivery O2 Flow Rate FiO2 04/13/25 19:30 70 151/73 04/13/25 19:25 98.1 20 99 Room Air 04/13/25 18:39 21 04/13/25 08:00 0 Laboratory Tests 04/13/25 03:59 Medications Current Medications Lactated Ringer's 1,000 ml @ 0 mls/hr ONCE ONCE IV Last administered on 04/12/25at 11:48; Start 04/12/25 at 11:30; Stop 04/12/25 at 11:34; Status DC Albuterol Sulfate 2.5 mg [id number] IH; Start 04/12/25 at 18:00; Stop 04/12/25 at 16:12; Status DC Acetaminophen 650 mg Q6H PRN PO Last administered on 04/12/25at 21:21; Start 04/12/25 at 15:00; Stop 05/12/25 at 14:59 Acetaminophen 650 mg Q6H PRN RC; Start 04/12/25 at 15:00; Stop 05/12/25 at 14:59 Dopamine HCl/ Dextrose 250 ml @ 0 mls/hr PROTOCOL PRN IV; Start 04/12/25 at 15:30; Stop 05/12/25 at 15:29 Magnesium Sulfate 50 ml @ 0 mls/hr PROTOCOL PRN IV Last administered on 04/12/25at 23:46; Start 04/12/25 at 15:30; Stop 05/12/25 at 15:29 Potassium Chloride 100 ml @ 100 mls/hr AD PRN IV; Start 04/12/25 at 15:30; Stop 05/12/25 at 15:29 Potassium Chloride 20 meq AD PRN PO; Start 04/12/25 at 15:30; Stop 05/12/25 at 15:29 Potassium Chloride 20 meq AD PRN PO; Start 04/12/25 at 15:30; Stop 05/12/25 at 15:29 Potassium Chloride 100 ml @ 50 mls/hr AD PRN IV; Start 04/12/25 at 15:30; Stop 05/12/25 at 15:29 Lorazepam 2 mg ONCE PRN IVP; Start 04/12/25 at 15:30; Stop 04/12/25 at 15:15; Status DC Famotidine 20 mg ONCE ONCE IV; Start 04/12/25 at 15:30; Stop 04/12/25 at 15:31; Status DC Diazepam 10 mg ONCE PRN IVP; Start 04/12/25 at 15:30; Stop 04/19/25 at 15:29 Fluticasone Propionate . AM NS Last administered on 04/13/25at 08:09; Start 04/13/25 at 09:00; Stop 05/13/25 at 08:59 Montelukast Sodium 10 mg HS PO Last administered on 04/13/25at 21:11; Start 04/12/25 at 21:00; Stop 05/12/25 at 20:59 Pantoprazole Sodium 40 mg DAILY PO Last administered on 04/13/25at 08:09; Start 04/13/25 at 09:00; Stop 05/13/25 at 08:59 Duloxetine HCl 60 mg HS PO Last administered on 04/13/25at 21:11; Start 04/12/25 at 21:00; Stop 05/12/25 at 20:59 Folic Acid 1 mg DAILY PO Last administered on 04/13/25at 08:09; Start 04/13/25 at 09:00; Stop 05/13/25 at 08:59 Miscellaneous Medication 1 tab DAILY PO; Start 04/13/25 at 09:00; Stop 04/12/25 at 16:04; Status DC Lamotrigine 300 mg DAILY PO; Start 04/13/25 at 09:00; Stop 05/13/25 at 08:59 Topiramate 200 mg AM PO; Start 04/13/25 at 09:00; Stop 05/13/25 at 08:59; Status Cancel Miscellaneous Medication 300 mg HS PO; Start 04/12/25 at 21:00; Stop 05/12/25 at 20:59; Status UNV Albuterol Sulfate 2.5 mg [id number] IH Last administered on 04/13/25at 18:37; Start 04/12/25 at 18:00; Stop 05/13/25 at 17:59 Tetanus/ Diphtheria Toxoids Adsorbed 0.5 ml ONCE ONCE IM; Start 04/12/25 at 16:30; Stop 04/12/25 at 16:31; Status DC Topiramate 200 mg DAILY PO Last administered on 04/13/25at 08:09; Start 04/13/25 at 09:00; Stop 05/13/25 at 08:59 Topiramate 300 mg HS PO Last administered on 04/13/25at 21:10; Start 04/12/25 at 21:00; Stop 05/12/25 at 20:59 Lamotrigine 200 mg DAILY PO Last administered on 04/13/25at 08:08; Start 04/13/25 at 09:00; Stop 05/13/25 at 08:59 Lamotrigine 300 mg HS PO Last administered on 04/13/25at 21:11; Start 04/12/25 at 21:00; Stop 05/12/25 at 20:59 Primidone 25 mg HS PO Last administered on 04/13/25at 21:11; Start 04/13/25 at 21:00; Stop 05/13/25 at 20:59 VISH ESTES MD Apr 13, 2025 22:35
[2025-04-13] MEDS: guaiFENesin-DM 200/20MG 10ML PO PRN (23:09)
[2025-04-14 03:30] VITALS: BP 118/55; PULSE 68; RESP 17; TEMP 98.4
[2025-04-14 06:55] VITALS: PULSE 72; RESP 20
[2025-04-14 06:59] VITALS: PULSE 72; RESP 20; O2SAT 98
[2025-04-14 07:57] VITALS: BP 138/65; PULSE 67; RESP 20; TEMP 98.5
--- NOTE | 2025-04-14 09:40 | PN ---
[facility] PROGRESS NOTE Date Patient Seen: Apr 14, 2025 Time of Visit: 09:40 Supervising Physician: [ ] Primary Care Physician:Brittany Gayle MD Outpatient Specialists: [ ] Inpatient Consults: [ ] Attending Physician: JACKIE PROBLEM LIST: Suspected symptomatic bradycardia, POA Acute hypoxemic respiratory failure, POA Syncope, POA Carotid stenosis ruled out per US Fall with head injury + LOC, POA Scalp laceration s/p 3 lele, POA Leukopenia, POA Hypomagnesemia, POA Cough, POA DJD with spondylosis of cervical spine Comorbidities: Obesity Seizure disorder Involuntary tremors on propranolol at home Secondhand smoker for over 17 yrs Vertigo INTERVAL HISTORY: Pt is awake alert and oriented. HR has improved to mid 50's and pt has been hemodynamically stable. o2 sat 98% at Room air. She has been afebrile. Since holding propranolol HR has slowly and steadily increased. She is stable to downgrade to M/S. Urine output has been good as per pt. WBC 2,6, HH stable. Cr 0.5. GFR 101. Cardiac enzymes negative x 3. 2D echo >65%. no pericardial effusion. left ventricular function is normal. Pending topiramate abd lamotrigine level. stable to downgrade to medical floor. If she continues to improve may be discharged home in the next 24 hours. . REVIEW OF SYSTEMS: Const: [no fever, fatigue, or weight changes] Eyes:[ no recent vision problems] ENT: [No congestion, ear pain, or sore throat] C/V: [no chest pain, palpitations or edema] Resp: + for cough and congestion GI: [No abdominal pain, nausea, vomiting, constipation, or diarrhea] : [No incontinence of or dyuria] M/S: [No joint or pain swelling] Skin: [No rash] Neuro:+ scalp laceration, +LOC, no dizziness Psych: [no depression or anxiety] Heme: [no abnormal bruising or bleeding] Lymph: [no swollen glands] PHYSICAL EXAM: GENERAL: alert, weak, awake oriented x 3 HEENT: EOMI, Sclera non icteric, moist mucosa NECK: Supple, no JVD, trachea midline LUNGS: Clear breath sounds bilaterally. No wheezes HEART: Regular rate and rhythm. Normal S1 and S2, without murmurs ABD: Obese Abdomen soft, nontender. Bowel sounds present EXT: No clubbing cyanosis or edema NEURO: Alert and oriented to person, follows commands Vital Signs (last 8hr) Date Time Temp Pulse Resp B/P (MAP) Pulse Ox O2 Delivery O2 Flow Rate FiO2 04/14/25 07:57 98.4 67 20 138/65 100 Room Air 04/14/25 06:59 72 20 N/A Room Air 21 04/14/25 06:55 72 20 04/14/25 03:30 98.4 68 17 118/55 99 Room Air LABS: Hematology Labs: Test 04/13/25 03:59 Range/Units White Blood Count 2.6 L 4.8-10.8 K/uL Red Blood Count 3.92 L 4.00-5.50 MIL/uL Hemoglobin 12.3 12.0-16.0 g/dL Hematocrit 37.5 36-48 % Mean Corpuscular Volume 95.7 79-99 fL Mean Corpuscular Hemoglobin 31.4 27.0-33.0 pg Mean Corpuscular Hemoglobin Concent 32.8 32.0-36.0 g/dL Red Cell Distribution Width 13.6 11.0-15.5 % Platelet Count 173 130-400 K/uL Mean Platelet Volume 9.1 7.5-10.5 fL Immature Granulocyte % (Auto) 0.4 0-1 % Neutrophils (%) (Auto) 37.6 L 40.0-77.0 % Lymphocytes (%) (Auto) 45.7 21.0-51.0 % Monocytes (%) (Auto) 14.0 H 3.0-13.0 % Eosinophils (%) (Auto) 1.9 0.0-8.0 % Basophils (%) (Auto) 0.4 0.0-5.0 % Neutrophils # (Auto) 1.0 L 1.8-7.7 K/uL Lymphocytes # (Auto) 1.2 1.0-4.8 K/uL Monocytes # (Auto) 0.4 0.1-1.0 K/uL Eosinophils # (Auto) 0.05 0.00-0.70 K/uL Basophils # (Auto) 0.01 0.00-0.20 K/uL Absolute Immature Granulocyte (auto 0.01 0-1 K/uL Segmented Neutrophils % 41 40-70 % Band Neutrophils % 2 0-2 % Lymphocytes % (Manual) 43 22-44 % Monocytes % (Manual) 14 H 2-9 % Nucleated Red Blood Cells 0.0 0.0-0.19 % Differential Comment MANUAL DIFFERENTIAL White Cell Morphology Comment Platelet Morphology Comment See comments Red Blood Cell Morphology ANISO 1+ Chemistry Labs: Test 04/13/25 03:59 Range/Units Sodium Level 142 136-145 mmol/L Potassium Level 4.0 3.5-5.1 mmol/L Chloride Level 111 101-111 mmol/L Carbon Dioxide Level 24 21-32 mmol/L Blood Urea Nitrogen 10 7-18 mg/dL Creatinine 0.5 0.5-1.0 mg/dL Glomerular Filtration Rate Calc 101 >90 mL/min Random Glucose 98 70-105 mg/dL Total Calcium 8.3 L 8.5-10.1 mg/dL Phosphorus Level 3.0 2.5-4.9 mg/dL Magnesium Level 2.40 1.80-2.40 mg/dL Total Creatine Kinase 57 21-232 U/L Troponin I High Sensitivity 11.9 4-50 ng/L B-Type Natriuretic Peptide 72 0-100 pg/mL Thyroid Stimulating Hormone (TSH) 2.68 0.36-3.74 uIU/mL Coagulation Labs: Test 04/13/25 03:59 04/12/25 11:53 Range/Units Prothrombin Time 10.2 9.6-11.6 SEC Prothromb Time International Ratio 0.96 0.85-1.15 Activated Partial Thromboplast Time 36.0 H 26.3-35.5 SEC DIAGNOSTICS / RADIOLOGY RESULTS: [ ] PLAN NEURO: Minimize central acting medications as possible. Maintain fall precautions, adequate lighting during the day PULMONARY: Supplemental 02 as needed. Maintain aspiration precautions at all times CARDIOVASCULAR: Follow hemodynamics. Vital signs per facility protocol GI & NUTRITION: Continue with nutritional support. Continue stool softeners and laxatives as needed. KIDNEYS & ELECTROLYTES: Strict monitoring of intake, output and overall fluid balance. Avoid nephrotoxic medications to the extent possible. Medications to be dosed according to renal function. Monitor electrolytes and replace as needed ENDOCRINE: Maintain blood glucose between 100-180 at all times. Hypoglycemia protocol in place INFECTIOUS DISEASE: Trend temperature, WBC and procalcitonin level Follow cultures, deescalate antibiotics as soon as possible. Panculture if new onset fever ONCOLOGY/HEMATOLOGY/COAGULATION: Monitor for s/s of bleeding Monitor hemoglobin, coagulation studies as needed SKIN: Pressure ulcer prevention per facility protocol Specialty mattress ORTHO/REHAB: Continue PT/OT Prophylaxis: Continue GI and DVT prophylaxis Code Status: Full Resuscitation Disposition: TBD Other: Total patient care time exceeds 35 minutes excluding all procedures. NETO RODARTE Apr 14, 2025 09:40
[2025-04-14] MEDS: amLODIPine 2.5 MG TAB PO SCH (09:49)
[2025-04-14] MEDS ORDERED: AMLO2.5T2 PO (10:31)
[2025-04-14] MEDS ORDERED: PRIM50TA23 PO (10:31)
[2025-04-14 11:33] VITALS: PULSE 67; RESP 20
[2025-04-14 11:36] VITALS: PULSE 67; RESP 20; O2SAT 97
--- NOTE | 2025-04-14 13:32 | DS ---
[facility] DISCHARGE SUMMARY Date Patient Seen: Apr 14, 2025 Time of Visit: 13:29 Supervising Physician: Dr. Louis Ghosh Primary Care Physician:Brittany Gayle MD Outpatient Specialists: [ ] Inpatient Consults: [ ] Attending Physician: JACKIE HOSPITAL COURSE: HPI (per admitting provider) This is a 69-year-old female who presented to the ED for evaluation of fall. Patient reports she was walking towards her car and next thing she know she had fallen to the ground. She obtain a proximally 3 in laceration to the her scalp posteriorly. and TDap ordered. Three lele placed in the ED per ED provider. Patient reports she has been having vertical off and on for few years. She reports she thinks it could be one of her current medication that is causing the dizziness. She also reports she sees a neurologist for her seizure disorder and involuntary tremors; she reports taking propranolol for tremors On arrival to the ED patient was hemodynamically stable heart rate in the 40s sinus bradycardia. Patient has been afebrile since admission. Laboratory done in the ED pertinent for white count of 3.4, magnesium 1.70. Otherwise unremarkable. CT of the head was done any ruled out intracranial bleed, cervical spine only fi nding of DJD with spondylosis. Chest x-ray unremarkable. Given syncope workup ultrasound of the carotids were done and ruled out carotid stenosis. We will admit pt overnight to the ICU with dopamine drip PRN for heart rate less than 40 and we will have Cardiology evaluate patient is for possible symptomatic bradycardia. 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 Patient informed that clinical findings and plan of care she agrees and wishes to proceed with the admission. The patient was treated for the following problems: Patient evaluated for syncopal episode associated with symptomatic bradycardia, she had a full workup by Cardiology with medication adjustment which has been sent to pharmacy. Patient has been cleared for discharge from cardiology standpoint with a expectations to follow up in two weeks. ACTIVE PROBLEM LIST FOR THE HOSPITALIZATION: Suspected symptomatic bradycardia, POA Acute hypoxemic respiratory failure, POA Syncope, POA Carotid stenosis ruled out per US Fall with head injury + LOC, POA Scalp laceration s/p 3 lele, POA Leukopenia, POA Hypomagnesemia, POA Cough, POA DJD with spondylosis of cervical spine Comorbidities: CHRONIC PROBLEMS: continue previous management per PCP unless otherwise indicated Obesity Seizure disorder Involuntary tremors on propranolol at home Secondhand smoker for over 17 yrs Vertigo CAN STERILIZER FINDINGS/RECOMMENDATIONS: [ ] PROCEDURES: as mentioned above DISCHARGE MEDICATIONS: Pt hemodynamically stable and afebrile at time of discharge. PCP notified of patients admission, hospital course and discharge. PHYSICAL EXAM: GENERAL: alert, weak, awake oriented x 3 HEENT: EOMI, Sclera non icteric, moist mucosa NECK: Supple, no JVD, trachea midline LUNGS: Clear breath sounds bilaterally. No wheezes HEART: Regular rate and rhythm. Normal S1 and S2, without murmurs ABD: Obese Abdomen soft, nontender. Bowel sounds present EXT: No clubbing cyanosis or edema NEURO: Alert and oriented to person, follows commands FOLLOW-UP: Follow-up with PCP in 2-3 days RECOMMENDATIONS: See Discharge Instructions This case was seen and discussed with my supervising physician. More than 30 minutes spent on discharge process, including evaluation of the patient, discussion with nursing staff, medication reconciliation and follow-up appointments NETO RODARTE Apr 14, 2025 13:32
== END 2025-04-14 12:30 | disposition home or self-care (01) ==
LOC: EDH 11:19 → EDHIP 14:44 → INTOOBSV 14:44 → 2BH 16:29 → 3AH 04-13 12:10
PROVIDERS: ADMIT Internal Medicine Critical Care Medicine; ATTEND Internal Medicine Critical Care Medicine
DX: J96.01 Acute respiratory failure with hypoxia (principal); R55 Syncope and collapse; S01.01XA Laceration without foreign body of scalp, initial encounter; R00.1 Bradycardia, unspecified; R42 Dizziness and giddiness; D72.819 Decreased white blood cell count, unspecified; E83.42 Hypomagnesemia; E66.9 Obesity, unspecified; R25.1 Tremor, unspecified; M47.812 Spondylosis without myelopathy or radiculopathy, cervical region; G40.909 Epilepsy, unspecified, not intractable, without status epilepticus; R22.1 Localized swelling, mass and lump, neck; W18.39XA Other fall on same level, initial encounter; Y93.89 Activity, other specified; Y92.89 Other specified places as the place of occurrence of the external cause; Y99.8 Other external cause status; Z98.890 Other specified postprocedural states; Z79.899 Other long term (current) drug therapy
CPT/HCPCS: 99285; 93880; 70450; 96365; 71045; 96361; 82947; 82550 ×4; 83735 ×2; 84484 ×4; 80048 ×2; 82803; 83880 ×2; 85025 ×2; 85610 ×2; 85730; 83605; 36415 ×2; 72125; 12001; 93005; 36600; 85018; 82435; 84132; 84295; 93306; 84443; 84100; 82533; 93356; 80201; 82542; 94640; J3475; G0378; 94664; 99291